=== PATIENT | male | born 1950 | race African-American/Black ===

== ENCOUNTER 2016-10-29 09:18 | Outpatient (CLI) | payer OTHER ==
[2016-10-29 12:49] LABS: #Basophils 0.1 thou/uL (0.0-0.2); #Eosinphils 0.4 thou/uL (0.0-0.7); #Monocytes 0.6 thou/uL (0.11-0.59); #Neutrophils 4.3 thou/uL (1.40-6.50); %Basophils 1.6 % (0.0-1.0); %Eosinophils 5.7 % (0.0-10.0); %Neutrophils 57.8 % (42.0-75.0); Hemoglobin 13.6 g/dL (14.0-18.0); Mean Corpuscular HGB CONC 32.3 g/dL (32.0-36.0); Mean Corpuscular Hemoglobin 30.7 pg (27.0-31.0); Mean Corpuscular Volume 94.9 fl (80.0-94.0); Mean Platelet Volume 7.2 fL (7.4-10.4); Platelet Count 193 thou/uL (130-400); RBC Distribution Width 12.7 % (11.5-14.5); Red Blood Cell (RBC) Count 4.42 mill/uL (4.70-6.10); White Blood Cell (WBC) Count 7.5 thou/uL (4.8-10.8)
[2016-10-29 12:56] LABS: ALT (SGPT) 23 U/L (8-55); AST (SGOT) 18 U/L (5-34); Albumin 4.4 g/dL (3.4-4.8); Alkaline Phosphatase 63 U/L (40-150); Anion Gap 15 mmol/L (10-20); BUN (Urea Nitrogen) 13 mg/dL (8.4-25.7); Bilirubin, Total 0.6 mg/dL (0.2-1.2); Calc. Creatinine Clearance 0 mL/min (70-130); Calcium 9.7 mg/dL (7.8-10.44); Carbon Dioxide 24 mmol/L (23-31); Cardiac Risk 4.4 (Less than 4.5); Chloride 106 mmol/L (98-107); Cholesterol 159 mg/dl (< 200 Desired); Estimated GFR-MDRD 66; Globulin 2.7 g/dL (2.4-3.5); Glucose 247 mg/dL (80-115); HDL Cholesterol 36 mg/dL (>60 Neg Risk); LDL Cholesterol, Calculated 62 mg/dL; Potassium 4.6 mmol/L (3.5-5.1); Protein, Total 7.1 g/dL (5.8-8.1); Sodium 140 mmol/L (136-145); Triglycerides 307 mg/dL (Less than 150)
[2016-10-29 13:09] LABS: Bilirubin Negative (Negative); Blood, Urine Negative (Negative); Clarity Clear (Clear); Glucose, Urine (Dipstick) Negative (Negative); Leukocyte Negative (Negative); Nitrite Negative (Negative); Protein, Urine (Dipstick) Negative (Neg-Trace); Specific Gravity, Urine 1.025 (1.005-1.030); Urobilinogen 0.2 mg/dL (0.2-1.0)
[2016-10-29 13:16] LABS: Hemoglobin A1c 8.6 % (4.0-6.0)
[2016-10-29 17:59] LABS: Creatinine, Urine 241.63 mg/dL (63-166); Microalbumin Urine 2.4 mg/dL (0.5-50.0); Microalbumin/Creat Ratio 9.9 mg/g (Less than 30)
== END 2016-10-29 09:19 | disposition home or self-care (01) ==
LOC: NAVSJIPCSP 09:18
PROVIDERS: ATTEND Internal Medicine
DX: Z23 Encounter for immunization (principal); E78.2 Mixed hyperlipidemia; E11.40 Type 2 diabetes mellitus with diabetic neuropathy, unspecified; Z79.899 Other long term (current) drug therapy
CPT/HCPCS: 36415; 80053; 80061; 81003; 82043; 83036; 84443; 85025

== ENCOUNTER 2017-03-21 11:45 | Outpatient (CLI) | payer MEDICARE ==
[2017-03-21 13:58] LABS: Bilirubin Negative (Negative); Blood, Urine Negative (Negative); Clarity Clear (Clear); Glucose, Urine (Dipstick) Negative (Negative); Leukocyte Small (Negative); Nitrite Negative (Negative); Protein, Urine (Dipstick) Negative (Neg-Trace); Urobilinogen 0.2 mg/dL (0.2-1.0); pH, Urine 5.5 (5.0-9.0)
[2017-03-21 14:03] LABS: Bacteria/HPF Rare-Few HPF (None Seen); RBC/HPF None Seen HPF (0-3); Squamous Epithelial 0-3 HPF (0-3)
[2017-03-21 14:04] LABS: Other Microscopic Description NO
== END 2017-03-21 11:46 | disposition home or self-care (01) ==
LOC: NAV LABSP 11:45
PROVIDERS: ATTEND Urology
DX: N40.0 Benign prostatic hyperplasia without lower urinary tract symptoms (principal)
CPT/HCPCS: 81001; 87086

== ENCOUNTER 2018-01-14 08:30 | Outpatient (CLI) | payer MEDICARE ==
--- NOTE | 2018-01-14 12:44 | CT ---
CT CHEST WITHOUT CONTRAST: 01/14/2018 PROVIDED CLINICAL HISTORY: Cough. History of asbestosis. COMPARISON: None. FINDINGS: The heart, pericardium, and great vessels are suboptimally evaluated in the absence of IV contrast ma terial. Vascular calcification, including coronary calcium, is demonstrated. There is no evidence for thoracic lymph node enlargement, with limitations due to lack of IV contrast . The airway appears patent and of normal caliber. Evaluation of the lung parenchyma is limited, due to patient respiratory motion. There is no focal c onsolidation evident. Interstitial changes are suboptimally evaluated on the basis of this study. N o pleural fluid, pleural thickening, or pneumothorax apparent. The visualized portions of the upper abdomen demonstrate an unremarkable, unenhanced CT appearance, w ith the exception of vascular calcification. The osseous structures demonstrate no concerning osteoblastic or osteolytic lesions. IMPRESSION: 1. No evidence for an acute process, with limitations as above. 2. Vascular calcification, including coronary calcium. POS: [facility]
== END 2018-01-14 08:31 | disposition home or self-care (01) ==
LOC: NAV CT 08:30
PROVIDERS: ATTEND Internal Medicine
DX: R05 Cough (principal); I25.10 Atherosclerotic heart disease of native coronary artery without angina pectoris; Z87.09 Personal history of other diseases of the respiratory system
CPT/HCPCS: 71250

== ENCOUNTER 2019-07-19 09:25 | Outpatient (CLI) | payer MEDICARE ==
--- NOTE | 2019-07-19 09:57 | RAD ---
Exam: XR Knee Lt 4 View STANDARD HISTORY: Acute left knee pain COMPARISON: None FINDINGS: Superior patellar enthesophyte is identified. No acute fracture, dislocation, or other acute osseous abnormality is identified. Vascular calcifications are seen posterior to the knee. IMPRESSION: No acute osseous abnormality is identified.
== END 2019-07-19 09:26 | disposition home or self-care (01) ==
LOC: NAV RAD 09:25
PROVIDERS: ATTEND Nurse Practitioner Adult Health
DX: M25.562 Pain in left knee (principal)

== ENCOUNTER 2023-08-28 10:39 | Outpatient (CLI) | payer MEDICARE | END 2023-08-28 10:40 | disposition home or self-care (01) | LOC: NAV RAD 10:39 | PROVIDERS: ATTEND Student in an Organized Health Care Education/Training Program | DX: M79.604 Pain in right leg (principal); I70.90 Unspecified atherosclerosis; M76.9 Unspecified enthesopathy, lower limb, excluding foot ==